=== PATIENT | male | born 1970 | race Two or more races ===

== ENCOUNTER 2016-12-17 10:40 | Day surgery (SDC) | payer BC ==
[~2016-12-17] VITALS: Ht 182.9 cm; Wt 86.0 kg
--- NOTE | ~2016-12-17 | ER ---
[facility]GE[facility] 46 Y [address] ROOM: [id number] [place], [place] [address] [place] [facility] [place]: 12[place]17/[place] ER/Outpatient Report DISCHARGE DATE: 12/18/2016 FAMILY PHYSICIAN: Anthony Sandoval MD ATTENDING PHYSICIAN: Marbin Boyle HISTORY OF PRESENT ILLNESS: The patient presents by private vehicle from [facility]. He has been having abdominal pain since last night. He has not had anything to eat since last night. The pain is located in the right lower quadrant. He states that he has not taken anything. He went to the clinic for evaluation. He had an elevated white blood cell count, some blood in his urine, he was sent here for CT scan. He denies any other acute issues at this time. He states he has no known medical problems, takes no medications, and has no allergies. He does occasionally drink alcohol. REVIEW OF SYSTEMS: All systems reviewed and negative except as noted in the HPI. PHYSICAL EXAMINATION: VITAL SIGNS: Blood pressure 137/79, pulse is 86, respiratory rate is 16, temperature 98.7, SpO2 is 99% on room air. Pain is rated at 5/10. GENERAL: Age-appropriate male, no obvious pain or distress, with no other abnormalities. NEUROLOGIC: Awake and alert. GCS 15. No focal deficits. No asymmetry on exam. HEENT: Normocephalic, atraumatic. Eyes are PERRL. Oropharynx is clear. NECK: Supple. Trachea is midline. CHEST: Heart is regular rate and rhythm with no murmurs. LUNGS: Clear to auscultation bilaterally. No rhonchi, wheezes, or rales. ABDOMEN: Soft, with point tenderness at McBurney's point with guarding at that location, mild rebound. No other masses. No other abnormalities. EXTREMITIES: Warm and well perfused. BACK: Back is normal to inspection and palpation. SKIN: Warm, dry, and intact. LABORATORY DATA AND X-RAYS: Labs from [facility] were reviewed. CT of abdomen without contrast was obtained. No stones. Findings consistent with appendicitis. IMPRESSION: Acute appendicitis. EMERGENCY DEPARTMENT COURSE: The patient was seen and evaluated as above. Reviewed labs from outside PAT[facility]'S [facility]: [facility] AGE: 46 Y [address] ROOM: [address] [address] [place] [facility] [place]: 12/17/2016 ER/Outpatient Report DISCHARGE DATE: 12/18/2016 FAMILY PHYSICIAN: Anthony Sandoval MD ATTENDING PHYSICIAN: Marbin Boyle. Ordered CT of the abdomen which was diagnostic of appendicitis. I consulted Dr. Boyle. He saw and evaluated the patient. We will take him to the operating room for further evaluation and treatment. The patient did not require any analgesia while in the emergency department. MD SHLOMO GONZALEZ/cynthia /[id number] d: 12/18/16 1501 t: 01/04/17 0853, OUTPATIENT REPORT
--- NOTE | ~2016-12-17 | OR ---
PATIENT'S NAME: MACARENA LANG [facility] AGE: 46 Y [address] ROOM: [address] [address] [place] [facility] [place]: 12/17/2016 OR/Procedure Report DISCHARGE DATE: FAMILY PHYSICIAN: Anthony Sandoval MD ATTENDING PHYSICIAN: Marbin Ferguson SURGEON: Marbin Ferguson MD LIFT SLAB OPERATOR: DATE OF PROCEDURE: 12/17/2016 PREOPERATIVE DIAGNOSIS: Acute appendicitis. POSTOPERATIVE DIAGNOSIS: Acute appendicitis. PROCEDURE PERFORMED: Laparoscopic appendectomy. ANESTHESIA: General with 17 mL of 0.5% Marcaine with epinephrine local. SPECIMENS: Appendix. FINDINGS: Acute inflammatory changes without perforation. INDICATION: The patient is a 46-year-old gentleman with less than 24-hour history of abdominal pain in the right lower quadrant. He was evaluated by Dr. Anthony Sandoval and had elevated white count of 16,000, tenderness, localized peritoneal findings in the right lower quadrant, and CT-confirmed acute appendicitis. I recommended appendectomy. The procedure, benefits, and risks were explained. DESCRIPTION OF PROCEDURE: After informed consent, the patient was taken to the operating room, and after general endotracheal anesthesia, the patient's abdomen was prepped and draped into a sterile field. Time-out performed. We confirmed the patient, planned procedure, and administration of preop antibiotics. Local anesthetic infiltrated prior to each incision, the first one made below the umbilicus and carried down to identify the anterior fascia through which a Veress needle and a 5 mm trocar and laparoscope inserted. Safe entry was noted. Under direct vision, a right upper quadrant 5 mm and suprapubic 12, and there was evidence of inflammatory changes of the appendix with a lot of edema and swelling of the mesoappendix. We had to separate small-bowel mesentery. We used several loads of an Endo-ELIZABETH 35 universal clip to divide the mesoappendix. We then divided across the mildly edematous appendiceal stump with another clip. We placed the appendix into the EndoCatch bag and brought it out through the 12 mm fascia defect. We irrigated the right lower quadrant until clear. Hemostasis was noted. The trocars were removed. Pneumoperitoneum released. The fascia defect at the 12 mm port site was closed with 0 Vicryl. Skin incisions closed with PATIENT'S NAME: MACARENA LANG [facility] AGE: 46 Y [address] ROOM: [address] [address] [place]: [facility] [place] DATE: 12/17/2016 OR/Procedure Report DISCHARGE DATE: FAMILY PHYSICIAN: Anthony Sandoval MD ATTENDING PHYSICIAN: Marbin Ferguson subcuticular 4-0 Vicryl. Steri-Strips and sterile dressings applied. The patient tolerated the procedure well and was transferred to the recovery room in stable condition. MARBIN FERGUSON MD WTS/modl /[id number] d: 12/17/16 1518 t: 12/26/16 1002, OPERATIVE SUMMARY
--- NOTE | ~2016-12-17 | HP ---
PATIENT'S NAME: CARMELO LANG [facility] AGE: 46 Y [address] ROOM: [place] [address] [place] [facility] [place]: 12/17/2016 History & Physical DISCHARGE DATE: FAMILY PHYSICIAN: Anthony Sandoval MD ATTENDING PHYSICIAN: Marbin Ferguson DATE OF SERVICE: CHIEF COMPLAINT: Abdominal pain. REVIEW OF RECORD: Carmelo is a pleasant, 46-year-old gentleman who has poor Uzbek command, but I used his daughter via phone who is bilingual with fluent Uzbek. The patient states about 8 p.m. last night, he started having some abdominal pain that went to the right lower quadrant. He presented to [facility] today to see Dr. Sandoval. He had some nausea and vomiting. His white count was elevated at 16,000. Dr. Sandoval felt him to be tender in the right lower quadrant, and he was sent over here for a CT scan. He had no dysuria or any gross hematuria, but he had blood in his urine, and that will be followed up. They were suspecting possible kidney stone. A CT scan was performed without IV contrast, and Dr. Mccoy, radiologist, showed reported inflamed, dilated appendix indicating acute appendicitis. I was asked to review the patient. I confirmed the past medical history and performed a physical examination. He was consistent clinically with acute appendicitis, and I recommended appendix removal. PAST MEDICAL HISTORY: MEDICATIONS: None. ALLERGIES: NONE. OPERATIONS: None. SOCIAL HISTORY: He works at [employer]. Occasional alcohol intake. No tobacco abuse. Healthy children. FAMILY HISTORY: Diabetes in the family. PATIENT'S NAME: CARMELO LANG [facility] AGE: 46 Y [address] ROOM: [place] [id number] [place] [facility] [place]: 12/17/2016 History & Physical DISCHARGE DATE: FAMILY PHYSICIAN: Anthony Sandoval MD ATTENDING PHYSICIAN: Marbin Ferguson REVIEW OF SYSTEMS: Denies any change in his weight. No change in vision or hearing. No problems with thyroid or diabetic conditions. No shortness of breath. No productive cough. No chest pain. No left-sided or epigastric pain. No history of Crohn disease. No history of kidney pathology. I told him that he did have to follow up with Dr. Sandoval or his family doctor regarding his hematuria. He denies any swollen joints or peripheral edema. PHYSICAL EXAMINATION: GENERAL: He is currently afebrile at 98.7. HEENT: Head is normocephalic. Sclerae are nonicteric. Mucous membranes are dry. NECK: Supple. There is no adenopathy. LUNGS: Clear. HEART: Normal sinus rhythm. ABDOMEN: Flat and soft. Positive bowel sounds. Tender with guarding in the right lower quadrant at McBurney point. 2/2 femoral and dorsalis pedis pulses. No peripheral edema. IMPRESSION: Acute appendicitis on clinical exam as well as radiological evidence based on CT scan. Recommended laparoscopic appendectomy. I explained the procedure, benefits, and risks including infection, abdominal wall hernia, abscess, bowel obstruction, bleeding requiring transfusion or surgical intervention, ureteral injury, and cardiac or pulmonary decompensation. The patient's questions answered to his satisfaction. He gives me permission to proceed. Thank you very much for allowing me to participate in his care. MARBIN FERGUSON MD WTReji/modl /[id number] P D: [id number] T: 004 HISTORY & PHYSICAL
--- NOTE | 2016-12-18 03:23 | NUR ---
Significant Event: DENIES PAIN OR NEED FOR MEDICATIONS THIS SHIFT. TOLERATED PO FLUIDS WELL. DRESSINGS D/I TO STAB SITES X3. VOIDS WITHOUT DIFFICULTY. AMBULATES IN HALLS AND TOLERATED WELL. SLEPT WELL. V/S STABLE. Follow up: DISMISSAL TO HOME TODAY
[2016-12-18] MEDS ORDERED: HYDROCODON-ACE1 EAC4 PO (10:34)
== END 2016-12-18 11:30 | disposition disaster alternative care site (69) ==
LOC: GMED 10:40 → GSDC 11:57 → GMSU 12:09 → GSDC 12-18 11:30
PROC: 0DTJ4ZZ Resection of Appendix, Percutaneous Endoscopic Approach (ICD-10-PCS; principal; 2016-12-17)
DX: K35.80 Unspecified acute appendicitis (principal)
CPT/HCPCS: J0694; J7030